=== PATIENT | male | born 2005 | race Asian ===

== ENCOUNTER 2024-08-22 15:45 | Observation (INO) ==
[2024-08-22 16:14] LABS: Basophils # (auto) 0.03 K/uL (0.00-0.20); Basophils % (auto) 0.3 %; Eosinophils # (auto) 0.01 K/uL (0.00-0.50); Eosinophils % (auto) 0.1 %; Hematocrit (blood only) 42.1 % (42.0-52.0); Immature Granulocytes # (auto) 0.05 K/uL (0.01-0.20); Immature Granulocytes % (auto) 0.4 %; Mean Corpuscular Hemoglobin 30.4 pg (25.0-34.0); Mean Corpuscular Hgb Conc 35.6 g/dL (32.0-36.0); Mean Corpuscular Volume 85.2 fL (80.0-100.0); Monocytes # (auto) 1.07 K/uL (0.11-0.59); Monocytes % (auto) 9.3 %; Neutrophils % (auto) 75.9 %; Platelet Count 231 K/uL (130-400); RDW Coefficient of Variation 11.7 % (11.5-14.5); RDW Standard Deviation 35.8 fL (36.4-46.3); Red Blood Count 4.94 M/uL (4.70-6.10); White Blood Count 11.46 K/ul (4.8-10.8)
[2024-08-22 16:16] LABS: Appearance Urine Clear (Clear); Bacteria Urine Automated None Seen (None Seen); Bilirubin Urine 1+ (Negative); Blood Urine Negative (Negative); Cast Urine Automated 0-2 /lpf (0-2); Color Urine Dark Yellow; Epithelial Cell Urine Auto 0-2 /hpf (0-2); Glucose Urine UA Negative (Negative); Ketones Urine 2+ (Negative); Leukocyte Esterase Urine Negative (Negative); Nitrite Urine Negative (Negative); Protein Urine 1+ (Negative); Specific Gravity Urine 1.027 (1.000-1.030); Urobilinogen Urine Negative (Negative); WBC Urine Automated 0-5 /hpf (0-5)
[2024-08-22 16:30] LABS: Albumin Globulin Ratio 1.7 (0.9-2); Albumin Level 4.7 gm/dl (3.4-5.0); BUN Creatinine Ratio 10.4 (10-20); Bilirubin,Total 1.2 mg/dl (0.2-1.0); Calcium 9.4 mg/dl (8.6-10.3); Creatinine Clr Calc Pharmacy 106.6 ml/min; Globulin 2.8 gm/dl (2.5-4.0); Potassium 3.6 mmol/L (3.5-5.1); Total Protein 7.5 gm/dl (6.0-8.3)
[2024-08-22] MEDS: OPTIRAY 320 100ml IV ONE (16:52)
--- NOTE | 2024-08-22 16:59 | Emergency Department Note ---
ED Provider Note History of Present Illness Chief Complaint: Abdominal Pain Stated Complaint: FEVER,ABD PAIN Time Seen by Provider: 08/22/24 16:37 Source: patient Mode of arrival: ambulatory Limitations: no limitations Patient is a 18-year-old male that presents to the emergency department with complaints of right lower quadrant pain. Patient states that he was seen at [facility] after having intermittent fevers and abdominal pain for most of the day. Patient was referred from [facility] to the emergency department to rule out appendicitis. Home Medications Medication Instructions Recorded Confirmed Type ibuprofen 1 tab PO DIRECTED PRN Pain 08/22/24 08/22/24 History amoxicillin 500 mg-potassium 1 tab PO Q12H #20 tabs 08/24/24 Rx clavulanate 125 mg tablet (Augmentin) Allergies Allergy/AdvReac Type Severity Reaction Status Date / Time No Known Allergies Allergy Unverified 08/22/24 18:39 Past Med/Surg History Problem List (Updated 08/22/24 @ 18:29 by YOGESH Priest) Acute appendicitis (Acute) Appendicitis Social History Smoking Status: Never smoker Second Hand Exposure: No; Do You Dip or Chew Tobacco: No; Hx Alcohol Use: No Hx Substance Use: No Preferred Language: Togolese Communication Ability: Effective Alteration Inspector Required: No Beliefs That Will Affect Care: None Current Living Situation: Other Current Living Situation Comment: lived in off-campus housing with 3 room mates Other Information That Helps Us Care for You: No Feels Safe at Home: Yes Safety Concerns: Feels Safe At This Time Assistive Devices: None Physical Exam Vital Signs Vital Signs - 24 hr 08/22/24 15:48 08/22/24 17:33 Temperature 37.4 C Temperature Source Temporal Artery Scan Pulse Rate 109 H 85 Respiratory Rate 20 Respiratory Effort / Characteristics Non-Labored Spontaneous Respiratory Depth Normal Respiratory Pattern Regular Blood Pressure 125/86 Blood Pressure Mean 99 Blood Pressure Position Sitting Pulse Oximetry 98 Oxygen Delivery Method Room Air Sepsis Recent Fever Within 48 Hours No Sepsis New/Unexplained Change in Mental Status N/A Sepsis Action Taken by Nursing No Action Required VITAL SIGNS - Vital signs and nursing notes were reviewed. GENERAL -18-year-old male appearing his stated age who is in no acute distress. Communicates well with provider and answers questions appropriately. HEAD - NC/AT. EYES - PERRL with EOMI bilaterally. Conjunctiva pink and moist with no injection noted. LUNGS - Chest wall symmetric without accessory muscle use, intercostals retractions, or central cyanosis. Breath sounds clear throughout all zhang. No wheezes, rales, or rhonchi appreciated. CARDIAC - RRR with S1/S2. No murmur, rubs, or gallops appreciated. ABDOMEN - Abdominal contour without pulsations or visible masses. Negative [place]'s or Harris Callejas's Signs. BS normoactive all four quadrants. Increased tenderness to palpation appreciated in the right lower quadrant. No guarding. No palpable masses, hepatosplenomegaly, or ascites noted. NEUROLOGIC - Sensory intact to light touch throughout. PSYCH - A&Ox3 and cooperates fully with examiner. Pt is very pleasant and interacts well with examiner. Course Administered Medications Discontinued Medications Sodium Chloride (Nss) 1,000 mls @ 999 mls/hr IV .Q1H1M STA Stop: 08/22/24 17:38 Last Infusion: 08/22/24 18:36 Dose: Infused Documented By: JOSE EDUARDO Admin: 08/22/24 17:13 Dose: 999 mls/hr Documented By: JOSE EDUARDO Acetaminophen (Ofirmev) 1,000 mg in 100 mls @ 400 mls/hr IV NOW STA Stop: 08/22/24 17:59 Last Infusion: 08/22/24 18:36 Dose: Infused Documented By: JOSE EDUARDO Admin: 08/22/24 18:03 Dose: 400 mls/hr Documented By: JOSE EDUARDO Lactated Ringer's (Lr) 500 mls @ 15 mls/hr IV .Q24H GALO Stop: 08/23/24 18:29 Last Infusion: 08/23/24 18:40 Dose: Infused Documented By: Admin: 08/22/24 20:57 Dose: 15 mls/hr Documented By: JOSE EDUARDO Piperacillin Sod/Tazobactam Sod (Zosyn) 4.5 gm in 100 mls @ 25 mls/hr IV Q8H GALO; Protocol Stop: 09/02/24 03:59 Last Infusion: 08/24/24 08:46 Dose: Infused Documented By: Admin: 08/24/24 04:25 Dose: 25 mls/hr Documented By: Infusion: 08/24/24 00:52 Dose: Infused Documented By: Admin: 08/23/24 20:48 Dose: 25 mls/hr Documented By: Infusion: 08/23/24 16:11 Dose: Infused Documented By: Admin: 08/23/24 11:49 Dose: 25 mls/hr Documented By: Infusion: 08/23/24 08:06 Dose: Infused Documented By: Admin: 08/23/24 03:59 Dose: 25 mls/hr Documented By: RAUL Piperacillin Sod/Tazobactam Sod (Zosyn) 4.5 gm in 100 mls @ 200 mls/hr IV NOW STA; Protocol Stop: 08/22/24 21:49 Last Infusion: 08/22/24 22:26 Dose: Infused Documented By: Admin: 08/22/24 21:51 Dose: 200 mls/hr Documented By: RAUL Ioversol (Optiray 320 100ml) 90 ml IV ONCE ONE Stop: 08/22/24 16:52 Last Admin: 08/22/24 16:52 Dose: 90 ml Documented By: KARI Medical Decision Making Differential Diagnosis Differential diagnoses includes gastritis, gastroenteritis, IBS, small bowel obstruction, pancreatitis, peritonitis, constipation, appendicitis, among others. Medical Records Attestation: I reviewed the patient's medical records. Home Medications was personally reviewed by me Laboratory Data Attestation: I reviewed the patient's lab results. 08/24/24 07:54 08/22/24 15:55 Lab Results 08/22/24 Range/Units 15:55 WBC 11.46 H (4.8-10.8) K/ul RBC 4.94 (4.70-6.10) M/uL Hgb 15.0 (14.0-18.0) g/dl Hct 42.1 (42.0-52.0) % MCV 85.2 (80.0-100.0) fL MCH 30.4 (25.0-34.0) pg MCHC 35.6 (32.0-36.0) g/dL RDW Std Deviation 35.8 L (36.4-46.3) fL RDW Coeff of Donita 11.7 (11.5-14.5) % Plt Count 231 (130-400) K/uL MPV 8.0 L (9.4-12.4) fL Immature Gran % (Auto) 0.4 % Neut % (Auto) 75.9 % Lymph % (Auto) 14.0 % [place] % (Auto) 9.3 % Eos % (Auto) 0.1 % Baso % (Auto) 0.3 % Neut # (Auto) 8.70 H (1.40-6.50) K/uL Lymph # (Auto) 1.60 (1.20-3.40) K/uL [place] # (Auto) 1.07 H (0.11-0.59) K/uL Eos # (Auto) 0.01 (0.00-0.50) K/uL Baso # (Auto) 0.03 (0.00-0.20) K/uL Immature Gran # (Auto) 0.05 (0.01-0.20) K/uL Sodium 136 (136-145) mmol/L Potassium 3.6 (3.5-5.1) mmol/L Chloride 101 (98-107) mmol/L Carbon Dioxide 29 (21-32) mmol/L Anion Gap 6 (3-11) BUN 11 (6-23) mg/dl Creatinine 1.06 (0.6-1.4) mg/dl Est Cr Clr Drug Dosing 106.6 ml/min eGFR 103.04 BUN/Creatinine Ratio 10.4 (10-20) Glucose 99 (70-99(Fasting)) mg/dl Calcium 9.4 (8.6-10.3) mg/dl Total Bilirubin 1.2 H (0.2-1.0) mg/dl AST 18 (13-39) U/L ALT 12 (7-52) U/L Alkaline Phosphatase 53 (34-104) U/L Total Protein 7.5 (6.0-8.3) gm/dl Albumin 4.7 (3.4-5.0) gm/dl Globulin 2.8 (2.5-4.0) gm/dl Albumin/Globulin Ratio 1.7 (0.9-2) Lipase 23 (11-82) U/L Urine Color Dark Yellow Urine Appearance Clear (Clear) Urine pH 6.0 (4.5-7.5) Ur Specific [place] 1.027 (1.000-1.030) Urine Protein 1+ H (Negative) Urine Glucose (UA) Negative (Negative) Urine Ketones 2+ H (Negative) Urine Blood Negative (Negative) Urine Nitrite Negative (Negative) Urine Bilirubin 1+ H (Negative) Urine Urobilinogen Negative (Negative) Ur Leukocyte Esterase Negative (Negative) Urine WBC (Auto) 0-5 (0-5) /hpf Urine RBC (Auto) 3-5 H (0-2) /hpf U Hyaline Cast (Auto) 0-2 (0-2) /lpf U Epithel Cells (Auto) 0-2 (0-2) /hpf Urine Bacteria (Auto) None Seen (None Seen) Imaging Data Radiologist's Impression: Abdomen/Pelvis CT 08/22/24 16:38 EXAMINATION: Abdomen and pelvis CT with CLINICAL HISTORY: Right lower quadrant pain PRIORS: None TECHNIQUE: Contiguous axial images were obtained through the abdomen and pelvis with the use of intravenous contrast. Sagittal and coronal reformations are supplied. FINDINGS: Mild bilateral gynecomastia within the [id number]. No pleural or pericardial effusion. The liver, gallbladder, portal vein, pancreas, spleen, stomach, adrenals, aorta and IVC are morphologically unremarkable. Kidneys enhance symmetrically. No hydronephrosis. The appendix is identified on image 32, series 300 and image 241, series 3. Gas is present in the proximal and mid appendix lumen. The mid to distal appendix contains fluid and mild wall enhancement, measuring up to 6.1 mm with very mild surrounding inflammatory change in the right lower quadrant. Multiple mildly prominent, nonpathologically enlarged lymph nodes present in the right lower quadrant, image 195, series 3. No extraluminal gas or abscess. A large amount of formed stool present in the sigmoid colon. The ascending colon is under distended with possible bowel wall edema/wall thickening, image 41, series 300 which is compared to the under distended descending colon on image 42. No ascites or extra luminal gas. No free fluid in the pelvis. Prostate not enlarged. Seminal vesicles symmetric. Urinary bladder unremarkable. No pelvic sidewall adenopathy. In bone windows, no acute osseous abnormality. IMPRESSION: 1. Under distended ascending colon with possible diffuse wall edema which could suggest colitis in the setting of right lower quadrant pain. 2. The mid to distal appendix contains fluid with mild wall enhancement and measures upper limits of normal, 6 mm with very mild inflammatory change in the right lower quadrant. Findings are equivocal for acute appendicitis and close clinical correlation is suggested. 3. Multiple prominent nonpathologically enlarged lymph nodes noted in the right lower quadrant. ACT 112: Positive. There are findings on this examination that require communication between the performing entity and the patient following Patient Test Result Information Act ([place] ACT 112) guidelines. Electronically signed by Lashawn Magaña 08-22-2024 5:25 PM MDM Narrative Patient is a 18-year-old male that presents to the emergency department with complaints of right lower quadrant pain. Patient states that he was seen at [facility] after having intermittent fevers and abdominal pain for most of the day. Patient was referred from [facility] to the emergency department to rule out appendicitis. Patient was evaluated by myself and findings were noted in the physical exam above. Patient was ordered IV placement, lab work, urinalysis, and a CT of the abdomen and pelvis. Patient was also ordered a liter of normal saline. Patient's lab work resulted with an elevated white blood cell count of 11.46. Patient had no indication of anemia with a hemoglobin of 15.0 and hematocrit of 42.1. Patient had no significant electrolyte imbalance noted. Patient did have a total bilirubin of 1.2. Patient's urinalysis resulted and was not indicative of infection, however did have 2+ ketones noted. Upon reevaluation the patient states that he was still having some discomfort and was ordered a dose of IV Tylenol at this time. Patient CT of the abdomen pelvis was completed and interpreted by radiology to show an under distended ascending colon with possible diffuse wall edema which could suggest colitis. Radiology also noted that the mid to distal appendix contain some fluid with mild wall enhancement and was measured at 6 mm with very mild inflammatory change. This findings were suggestive of acute appendicitis. Patient also had multiple prominent nonpathologically enlarged lymph nodes in the right lower quadrant. I discussed all these findings with the patient who verbalized understanding. I discussed with the patient that I would reach out to general surgery to speak with them about performing an appendectomy on the patient. Initially the patient stated that he did had food and fluids by mouth at approximately 1:30 PM. I reached out to Dr. Mcintosh from general surgery and gave him a full report of the patient's chief complaint, current status and the results of his imaging and lab work. Dr. Mcintosh stated that since he had something to eat at 130 that he would put him on the OR schedule for tomorrow morning. After discussing that plan with the patient, the patient states that he did not understand the question initially and actually has not had food by mouth since 8:00 this morning and only had fluids to drink at 130. I reach back out to Dr. Mcintosh and made him aware but he had already had plans to have him on the OR schedule for tomorrow. I discussed this plan with the patient who verbalized understanding and is agreeable to the plan for hospital admission tonight and to have his appendectomy tomorrow. Patient is comfortable at this time. Please refer to Dr. Mcintosh's documentation for further evaluation and management of this patient. Impression Acute appendicitis Discharge Plan Visit Data Chief Complaint: Abdominal Pain Stated Complaint: FEVER,ABD PAIN ED Provider: Verna Caballero ED Midlevel Provider: Yenni Carmona Discharge Problem: Acute appendicitis Patient Disposition: Admitted As Inpatient Condition: Fair Discharge Instructions Interventions: ED Discharge Assessment Last Done: 08/22/24 20:26 ED DC CONDITION Conditon at Discharge Condition at Discharge: Fair Discharge Problem: Acute appendicitis Qualifiers: Acute appendicitis type: unspecified acute appendicitis type Qualified Code(s): K35.80 - Unspecified acute appendicitis
[2024-08-22] MEDS: SODIUM CHLORIDE 0.9% 1,000 ML IV STA (17:13)
--- NOTE | 2024-08-22 17:26 | CT Scan Report ---
EXAMINATION: Abdomen and pelvis CT with CLINICAL HISTORY: Right lower quadrant pain PRIORS: None TECHNIQUE: Contiguous axial images were obtained through the abdomen and pelvis with the use of intravenous contrast. Sagittal and coronal reformations are supplied. FINDINGS: Mild bilateral gynecomastia within the [id number]. No pleural or pericardial effusion. The liver, gallbladder, portal vein, pancreas, spleen, stomach, adrenals, aorta and IVC are morphologically unremarkable. Kidneys enhance symmetrically. No hydronephrosis. The appendix is identified on image 32, series 300 and image 241, series 3. Gas is present in the proximal and mid appendix lumen. The mid to distal appendix contains fluid and mild wall enhancement, measuring up to 6.1 mm with very mild surrounding inflammatory change in the right lower quadrant. Multiple mildly prominent, nonpathologically enlarged lymph nodes present in the right lower quadrant, image 195, series 3. No extraluminal gas or abscess. A large amount of formed stool present in the sigmoid colon. The ascending colon is under distended with possible bowel wall edema/wall thickening, image 41, series 300 which is compared to the under distended descending colon on image 42. No ascites or extra luminal gas. No free fluid in the pelvis. Prostate not enlarged. Seminal vesicles symmetric. Urinary bladder unremarkable. No pelvic sidewall adenopathy. In bone windows, no acute osseous abnormality. IMPRESSION: 1. Under distended ascending colon with possible diffuse wall edema which could suggest colitis in the setting of right lower quadrant pain. 2. The mid to distal appendix contains fluid with mild wall enhancement and measures upper limits of normal, 6 mm with very mild inflammatory change in the right lower quadrant. Findings are equivocal for acute appendicitis and close clinical correlation is suggested. 3. Multiple prominent nonpathologically enlarged lymph nodes noted in the right lower quadrant. ACT 112: Positive. There are findings on this examination that require communication between the performing entity and the patient following Patient Test Result Information Act ([place] ACT 112) guidelines. Electronically signed by Lashawn Magaña 08-22-2024 5:25 PM
[2024-08-22] MEDS: ACETAMINOPHEN 1,000 MG/100 ML VIAL IV STA (18:03)
--- NOTE | 2024-08-22 18:24 | History & Physical Report ---
Date of Service August 22, 2024 Assessment & Plan (1) Appendicitis: Plan: possible early appendicitis no appendicolith WBC 11 wants to attempt IV abx conservative treatment History of Present Illness Primary Care Provider: [facility] This is a 18-year-old male who was healthy until he began to have some abdominal pain beginning a few hours ago associated with fever. The pain and was mainly right lower quadrant. He tolerated some liquids earlier this afternoon. A CT scan shows a possible early appendicitis with no appendicolith. Past Med/Surg History Problem List (Updated 08/22/24 @ 18:25 by Kirit Mcintosh MD) Appendicitis Social History Smoking Status: Never smoker Preferred Language: Serbian Feels Safe at Home: Yes Review of Systems + fever; no chills and no anorexia no problem reported no problem reported no cough and no dyspnea no chest pain + abdominal pain; no nausea, no vomiting and no change in bowel habits no dysuria no localized weakness no behavioral changes no easy bleeding and no easy bruising Physical Exam Eyes: no scleral abnormality ENMT: external ear and nose normal, oropharynx normal Neck: trachea midline Respiratory: normal respiratory effort, lungs clear to auscultation Cardiovascular: RRR, no murmur, no edema Gastrointestinal (Abdomen): Inspection/Auscultation: abdomen normal to inspection and normal bowel sounds; abdomen not distended Percussion/Palpation: + abdomen tender and abdomen soft; no guarding and abdomen not rigid Musculoskeletal: Head/Neck/Chest: normocephalic and head atraumatic Skin: no rashes, warm and dry Results & Data Vital Signs (Past 12 Hours) Vital Signs Temp Pulse Resp BP Pulse Ox O2 Del Method 08/22/24 17:33 85 08/22/24 15:48 37.4 C 109 H 20 125/86 98 Room Air Diagnostic Findings EXAMINATION: Abdomen and pelvis CT with CLINICAL HISTORY: Right lower quadrant pain PRIORS: None TECHNIQUE: Contiguous axial images were obtained through the abdomen and pelvis with the use of intravenous contrast. Sagittal and coronal reformations are supplied. FINDINGS: Mild bilateral gynecomastia within the [id number]. No pleural or pericardial effusion. The liver, gallbladder, portal vein, pancreas, spleen, stomach, adrenals, aorta and IVC are morphologically unremarkable. Kidneys enhance symmetrically. No hydronephrosis. The appendix is identified on image 32, series 300 and image 241, series 3. Gas is present in the proximal and mid appendix lumen. The mid to distal appendix contains fluid and mild wall enhancement, measuring up to 6.1 mm with very mild surrounding inflammatory change in the right lower quadrant. Multiple mildly prominent, nonpathologically enlarged lymph nodes present in the right lower quadrant, image 195, series 3. No extraluminal gas or abscess. A large amount of formed stool present in the sigmoid colon. The ascending colon is under distended with possible bowel wall edema/wall thickening, image 41, series 300 which is compared to the under distended descending colon on image 42. No ascites or extra luminal gas. No free fluid in the pelvis. Prostate not enlarged. Seminal vesicles symmetric. Urinary bladder unremarkable. No pelvic sidewall adenopathy. In bone windows, no acute osseous abnormality. IMPRESSION: 1. Under distended ascending colon with possible diffuse wall edema which could suggest colitis in the setting of right lower quadrant pain. 2. The mid to distal appendix contains fluid with mild wall enhancement and measures upper limits of normal, 6 mm with very mild inflammatory change in the right lower quadrant. Findings are equivocal for acute appendicitis and close clinical correlation is suggested. 3. Multiple prominent nonpathologically enlarged lymph nodes noted in the right lower quadrant.
[2024-08-22] MEDS: LACTATED RINGER'S 1,000 ML IV SCH (20:57)
[2024-08-22] MEDS ORDERED: ACETAMINOPHEN 325 MG TAB PO PRN (21:13)
[2024-08-22] MEDS ORDERED: ONDANSETRON INJ 2 MG/ML 2 ML VIAL IV PRN (21:13)
[2024-08-22] MEDS ORDERED: MoRPHine SULFATE 2 MG/ML CARP IV PRN ×2 (21:13)
[2024-08-22] MEDS: 4.5GM X1 IV STA (21:51)
[2024-08-23] MEDS: PIPERACILLIN/TAZOBACTAM 4.5 GM/100 ML BAG IV SCH (03:59)
[2024-08-23] MEDS ORDERED: LIDOCAINE 2% 2 ML VIAL/AMP(20MG/ML) INFIL ONE ×2 (07:10)
[2024-08-23] MEDS ORDERED: ONDANSETRON INJ 2 MG/ML 2 ML VIAL ONE (07:10)
[2024-08-23] MEDS ORDERED: PROPOFOL IV EMULSION 10 MG/ML 20 ML VIAL IV ONE (07:10)
[2024-08-23] MEDS ORDERED: DEXAMETHASONE SOD INJ 4 MG/ML VIAL ONE ×2 (07:11→07:13)
[2024-08-23] MEDS ORDERED: ROCURONIUM BROMIDE 10 MG/ML 5 ML VIAL IV ONE (07:11)
--- NOTE | 2024-08-23 08:17 | Surgery Progress Note ---
Date of Service August 23, 2024 Assessment & Plan (1) Acute appendicitis: Plan: responding to abx begin clears check CBC in AM continue IV abx Admission and Anticipated Discharge Date Admission Date: August 22, 2024 Subjective feels better after BM this AM afebrile no N/V Review of Systems Constitutional: no fever and no chills Respiratory: no cough and no dyspnea Cardiovascular: no chest pain Gastrointestinal: + abdominal pain (minimal) and + diarrhe a/loose stools; no nausea and no vomiting Neurologic: no localized weakness Psychiatric: no behavioral changes Hematologic / Lymphatic: no easy bleeding and no easy bruising Physical Exam Constitutional: WD/WN, vitals as above Respiratory: normal respiratory effort, lungs clear to auscultation Cardiovascular: RRR, no murmur, no edema Gastrointestinal (Abdomen): Inspection/Auscultation: abdomen normal to inspection and normal bowel sounds; abdomen not distended Percussion/Palpation: abdomen soft; abdomen nontender, no guarding and abdomen not rigid Musculoskeletal: Head/Neck/Chest: normocephalic and head atraumatic Skin: no rashes, warm and dry Results & Data Vital Signs (Past 12 Hours) Vital Signs Temp Pulse Resp BP BP Pulse Ox O2 Del Method 08/23/24 07:11 36.8 C 98 H 14 115/69 98 Room Air 08/22/24 21:07 37.2 C 81 16 110/70 97 Room Air 08/22/24 21:00 37.2 C 81 16 110/70 97 Room Air (1) Acute appendicitis Acute appendicitis type: unspecified acute appendicitis type Qualified Code(s): K35.80 - Unspecified acute appendicitis
[2024-08-24 08:12] LABS: Basophils # (auto) 0.01 K/uL (0.00-0.20); Basophils % (auto) 0.2 %; Eosinophils # (auto) 0.16 K/uL (0.00-0.50); Eosinophils % (auto) 2.6 %; Hematocrit (blood only) 40.8 % (42.0-52.0); Hemoglobin 14.3 g/dl (14.0-18.0); Immature Granulocytes # (auto) 0.02 K/uL (0.01-0.20); Immature Granulocytes % (auto) 0.3 %; Lymphocytes # (auto) 2.36 K/uL (1.20-3.40); Lymphocytes % (auto) 38.6 %; Mean Corpuscular Hemoglobin 29.8 pg (25.0-34.0); Mean Platelet Volume 8.1 fL (9.4-12.4); Monocytes # (auto) 0.78 K/uL (0.11-0.59); Monocytes % (auto) 12.7 %; Neutrophils # (auto) 2.79 K/uL (1.40-6.50); Neutrophils % (auto) 45.6 %; Platelet Count 254 K/uL (130-400); RDW Coefficient of Variation 11.6 % (11.5-14.5); RDW Standard Deviation 35.8 fL (36.4-46.3); White Blood Count 6.12 K/ul (4.8-10.8)
[2024-08-24 08:37] VITALS: BP 121/76; PULSE 72; RESP 16; TEMP 97.5; O2SAT 97
--- NOTE | 2024-08-24 12:28 | Surgery Progress Note ---
Date of Service August 24, 2024 Assessment & Plan (1) Acute appendicitis: Plan: responding to abx no abdominal pain, has not required any pain medication wbc 6k (11K) Plan: low fiber diet continue IV abx, oral abx on discharge for 10 days if does well with lunch, d/c this afternoon Discussed with dr. krishna who agrees with above. Admission and Anticipated Discharge Date Admission Date: August 22, 2024 Subjective no abdominal pain, cramping with diarrhea has not had any pain medication no n,v hungry no fevers or chills Physical Exam Constitutional: WD/WN, vitals as above cooperative and comfortable; no acute distress and not ill appearing Respiratory: normal respiratory effort; no respiratory distress and no labored breathing Gastrointestinal (Abdomen): Inspection/Auscultation: abdomen normal to inspection; abdomen not distended Percussion/Palpation: abdomen soft; abdomen nontender, no guarding, abdomen not rigid and abdomen not firm Skin: no rashes, warm and dry Psychiatric: Orientation: alert and oriented x 3 Results & Data Vital Signs (Past 12 Hours) Vital Signs Temp Pulse Resp BP Pulse Ox O2 Del Method 08/24/24 08:36 36.4 C L 72 16 121/76 97 Room Air Laboratory Results 08/24/24 Range/Units 07:54 WBC 6.12 (4.8-10.8) K/ul RBC 4.80 (4.70-6.10) M/uL Hgb 14.3 (14.0-18.0) g/dl Hct 40.8 L (42.0-52.0) % MCV 85.0 (80.0-100.0) fL MCH 29.8 (25.0-34.0) pg MCHC 35.0 (32.0-36.0) g/dL RDW Std Deviation 35.8 L (36.4-46.3) fL RDW Coeff of Donita 11.6 (11.5-14.5) % Plt Count 254 (130-400) K/uL MPV 8.1 L (9.4-12.4) fL Immature Gran % (Auto) 0.3 % Neut % (Auto) 45.6 % Lymph % (Auto) 38.6 % [place] % (Auto) 12.7 % Eos % (Auto) 2.6 % Baso % (Auto) 0.2 % Neut # (Auto) 2.79 (1.40-6.50) K/uL Lymph # (Auto) 2.36 (1.20-3.40) K/uL [place] # (Auto) 0.78 H (0.11-0.59) K/uL Eos # (Auto) 0.16 (0.00-0.50) K/uL Baso # (Auto) 0.01 (0.00-0.20) K/uL Immature Gran # (Auto) 0.02 (0.01-0.20) K/uL (1) Acute appendicitis Acute appendicitis type: unspecified acute appendicitis type Qualified Code(s): K35.80 - Unspecified acute appendicitis
--- NOTE | 2024-08-24 12:33 | Discharge Summary ---
Date of Service August 24, 2024 Admission HPI Per Admitting Provider This is a 18-year-old male who was healthy until he began to have some abdominal pain beginning a few hours ago associated with fever. The pain and was mainly right lower quadrant. He tolerated some liquids earlier this afternoon. A CT scan shows a possible early appendicitis with no appendicolith. Admission Exam Per Admitting Provider Eyes: no scleral abnormality ENMT: external ear and nose normal, oropharynx normal Neck: trachea midline Respiratory: normal respiratory effort, lungs clear to auscultation Cardiovascular: RRR, no murmur, no edema Gastrointestinal (Abdomen): Inspection/Auscultation: abdomen normal to inspection and normal bowel sounds; abdomen not distended Percussion/Palpation: + abdomen tender and abdomen soft; no guarding and abdomen not rigid Musculoskeletal: Head/Neck/Chest: normocephalic and head atraumatic Skin: no rashes, warm and dry Principal Diagnosis Appendicitis Discharge Exam Constitutional WD/WN, vitals as above Respiratory normal respiratory effort, lungs clear to auscultation Cardiovascular RRR, no murmur, no edema Gastrointestinal (Abdomen) Inspection/Auscultation: abdomen normal to inspection and normal bowel sounds; abdomen not distended Percussion/Palpation: abdomen soft; abdomen nontender Skin no rashes, warm and dry Discharge Data Allergies Allergy/AdvReac Type Severity Reaction Status Date / Time No Known Allergies Allergy Unverified 08/22/24 18:39 Consultations 08/22/24 17:57 Consult General Surgery Stat Procedures Performed Operation Date: 08/23/24 07:00 <No data on this case meets the specified criteria> Ordered Studies 08/22/24 16:38 CT abd pelvis IV con only Stat Hospital Course (1) Appendicitis: This is a 18-year-old male who is admitted to the ED with appendicitis without sign of an appendicolith. There are some enlarged lymph nodes. He had minimal tenderness. He was placed on IV fluids IV antibiotics and monitored. He responded immediately. We began him on a diet which he tolerated well he has had no pain no fevers his white count is normal we will discharge him to home on 10 days of p.o. antibiotics. He understands that if he has recurrent symptoms he will need to come back to the ED to be reevaluated. He will follow-up as needed Total Time Total Time Spent Total Time Spent (In Minutes): 15 Total Time Includes: Discharge Planning and Medication Reconciliation Discharge Plan Discharge Items Patient Disposition: Home - Self-Care Reason For Visit: Appendicitis Discharge Diagnosis: appendicitis Condition on Discharge: Fair Activity: Resume your previous activity Lifting: None Bathing: No limitations Sexual Activity: When tolerated Exercise/Sports: As tolerated Driving/Machine Use: No limitations Weightbearing: Full weightbearing Non-emergency contact: Surgeon Call non-emergency contact if: your symptoms worsen Follow-up/Referrals: [facility] [Primary Care Provider] - Diet: Regular Addtl Attending Provider Instructions: return to ED if pain returns OK to proceed on airplane without restrictions return to school/work as tolerated finish full antibiotic course Pending Studies at Discharge: No Stand-Alone Forms: [facility], Smoking Cessation Medications and DC Order Prescriptions: New amoxicillin-pot clavulanate [Augmentin] 500-125 mg tablet 1 tab PO Q12H Qty: 20 0RF Continued ibuprofen 1 tab PO DIRECTED PRN (Reason: Pain) Discontinued Cephalosporins 1 cap PO DIRECTED Rx Instructions: per pt he took "a cephalosporin last night and this morning." No fill history available. Discharge Orders: Discharge Order (Routine); Ordered 08/24/24 Ordered By: Kirit Mcintosh Admission Data Admit Date/Time: 08/22/24 18:29 Attending Provider: Kirit Mcintosh Admit Provider: Kirit Mcintosh Primary Care Provider: [facility] Other Providers: Kirit Mcintosh
== END 2024-08-24 14:07 | disposition home or self-care (01) ==
LOC: 3N 15:45 → ED 15:45 → 3N 20:26
DX: K35.80 Unspecified acute appendicitis